=== PATIENT | male | born 1945 | race Two or more races ===

== ENCOUNTER 2018-03-13 16:12 | Inpatient (IN) | payer MEDICARE, OTHER ==
[~2018-03-13] VITALS: Ht 162.6 cm; Wt 68.9 kg
[2018-03-13] MEDS ORDERED: DIGOXIN250 MCG ORAL (23:33)
[2018-03-13] MEDS ORDERED: IPRATROPIU0.2 MG/1 M HHN (23:33)
[2018-03-13] MEDS ORDERED: HUMULIN R100 UNIT/1 SUBQ (23:33)
[2018-03-13] MEDS ORDERED: MULTIVITAMINS1 EAC8 ORAL (23:33)
[2018-03-13] MEDS ORDERED: ALBUTEROL2.5 MG/3 M INH (23:33)
[2018-03-13] MEDS ORDERED: CALCIUM CARBON500 M1 PO (23:33)
[2018-03-13] MEDS ORDERED: BETAXOLOL HCL20 MG PO (23:33)
[2018-03-13] MEDS ORDERED: ACETAMINOPHEN325 M1 ORAL (23:33)
[2018-03-13] MEDS ORDERED: FUROSEMIDE40 MG ORAL (23:33)
[2018-03-13] MEDS ORDERED: MAGNESIUM400 M1 PO (23:33)
[2018-03-13] MEDS ORDERED: ATORVASTATIN CA40 MG ORAL (23:33)
[2018-03-13] MEDS ORDERED: SENNA8.6 M2 PO (23:33)
[2018-03-13] MEDS ORDERED: ASPIR 8181 MG ORAL (23:33)
[2018-03-13] MEDS ORDERED: OMEPRAZOLE40 M1 ORAL (23:33)
[2018-03-13] MEDS ORDERED: XARELTO20 MG ORAL (23:33)
[2018-03-13] MEDS ORDERED: AMLODIPINE BESY10 MG ORAL (23:33)
[2018-03-14] VITALS: BP 154/62
[2018-03-14] MEDS ORDERED: Ipratropium 0.02% Inh Soln 2.5ml UD HHN PRN (02:45)
[2018-03-14] MEDS ORDERED: Albuterol ud Inhalation HHN PRN (02:45)
[2018-03-14 04:00] VITALS: BP 147/71
[2018-03-14] MEDS: NovoLOG Insulin Flexpen SUBQ SCH ×4 (07:05→20:39)
[2018-03-14 08:00] VITALS: BP 145/63
[2018-03-14 08:08] LABS: BASOPHILS % (AUTO) 0.9 % (0.0-2.0); EOSINOPHILS % (AUTO) 2.9 % (0.0-3.0); HEMATOCRIT 37.7 % (42.0-52.0); HEMOGLOBIN 13.2 G/DL (14.2-18.0); LYMPHOCYTES % (AUTO) 25.5 % (20.0-45.0); MEAN CORPUSCULAR VOLUME 92 FL (80-99); MONOCYTES % (AUTO) 7.4 % (1.0-10.0); NEUTROPHILS % (AUTO) 63.4 % (45.0-75.0); PLATELET COUNT 262 K/UL (150-450); RED CELL DISTRIBUTION WIDTH 12.7 % (11.6-14.8); WHITE BLOOD COUNT 11.3 K/UL (4.8-10.8)
[2018-03-14 08:54] LABS: ALANINE AMINOTRANSFERASE 16 U/L (12-78); ALBUMIN 2.8 G/DL (3.4-5.0); ALBUMIN/GLOBULIN RATIO 0.6 (1.0-2.7); ALKALINE PHOSPHATASE 125 U/L (46-116); ANION GAP 8 mmol/L (5-15); ASPARTATE AMINO TRANSFERASE 20 U/L (15-37); BILIRUBIN,TOTAL 0.5 MG/DL (0.2-1.0); BLOOD UREA NITROGEN 19 mg/dL (7-18); CALCIUM 8.5 MG/DL (8.5-10.1); CARBON DIOXIDE 27 MMOL/L (21-32); CHLORIDE 104 MMOL/L (98-107); CREATININE 0.9 MG/DL (0.55-1.30); POTASSIUM 3.1 MMOL/L (3.5-5.1); SODIUM 139 MMOL/L (136-145)
[2018-03-14] MEDS ORDERED: Sennosides 8.6mg ORAL SCH (09:00)
[2018-03-14] MEDS: Furosemide 40mg tab ORAL SCH ×2 (09:00→17:33)
[2018-03-14] MEDS: Tums 500mg ORAL SCH ×2 (09:29→17:33)
[2018-03-14] MEDS: Aspirin EC 81mg tab ORAL SCH (09:29)
[2018-03-14] MEDS: Sennosides 8.6mg ORAL SCH ×2 (09:30→17:33)
[2018-03-14] MEDS: Multivitamin w/Minerals tab ORAL SCH (10:48)
[2018-03-14 12:00] VITALS: BP 154/90
[2018-03-14 16:00] VITALS: BP 143/69
--- NOTE | 2018-03-14 19:00 | History and Physical Report ---
DATE OF ADMISSION: 03/13/2018 HISTORY OF PRESENT ILLNESS: The patient is a 73-year-old male who has past medical history of hypertension, diabetes, dementia, and degenerative arthritis, came to the emergency room and also feeling short of breath and cough with sputum production. The patient apparently also had wheezing for the last three days . He has no fever or chills. PAST MEDICAL HISTORY: Significant for diabetes, hypertension, COPD, depression, and dementia. ALLERGIES: NKA. MEDICATIONS: See the list. PHYSICAL EXAMINATION: GENERAL: This is an elderly male, sitting in the bed, complaining of mild short of breath and cough. VITAL SIGNS: Blood pressure is 130/70, pulse 60, and respirations 18. HEENT: NAD. CHEST: Bilateral scattered wheezing and crackles. CARDIOVASCULAR: Regular rhythm. No gallop. No murmur. ABDOMEN: Soft. EXTREMITIES: CCE. NEUROLOGICAL: Generalized weakness. GENITOURINARY: Deferred. LABORATORY AND DIAGNOSTIC DATA: Potassium was low 3.2. White count is normal. The patient's BUN and creatinine is also normal. He was found to have severe bradycardia. ASSESSMENT: 1. Acute chronic obstructive pulmonary disease exacerbation. 2. Severe bradycardia. 3. Atrial fibrillation. 4. Hypertension. 5. Diabetes. 6. Dementia. PLAN: The patient is admitted on telemetry bed. We are going to hold his digoxin. I am going to continue steroids, bronchodilator treatments, antibiotics. Consider cardiology consult. Potassium replacement and repeat the labs. Mayo Colunga M.D. DR: Jam JOB#: [id number] CC:
[2018-03-14 20:00] VITALS: BP 147/66
[2018-03-14] MEDS: Atorvastatin 20mg tab ORAL SCH (20:35)
[2018-03-15] VITALS: BP 156/87
[2018-03-15 04:00] VITALS: BP 112/55
[2018-03-15] MEDS: NovoLOG Insulin Flexpen SUBQ SCH ×4 (05:58→21:03)
[2018-03-15 08:00] VITALS: BP 162/80
[2018-03-15] MEDS: Aspirin EC 81mg tab ORAL SCH (09:04)
[2018-03-15] MEDS: Sennosides 8.6mg ORAL SCH ×2 (09:04→16:44)
[2018-03-15] MEDS: Furosemide 40mg tab ORAL SCH ×2 (09:05→16:43)
[2018-03-15] MEDS: Multivitamin w/Minerals tab ORAL SCH (09:05)
[2018-03-15] MEDS: Tums 500mg ORAL SCH ×2 (09:05→16:43)
[2018-03-15 12:00] VITALS: BP 146/74
[2018-03-15] MEDS ORDERED: 1/2 NS 1000ml IV ONE (13:39)
--- NOTE | 2018-03-15 13:48 | Infectious Diseases Prog Note ---
Assessment/Plan Problems: (1) COPD with acute exacerbation Assessment & Plan: will order CXR to rule out new pneumonia , and start levaquin empiric coverage (2) Uncontrolled diabetes mellitus Assessment & Plan: recommend tight glycemic control to keep blood glucose between 100-140 (3) SOB (shortness of breath) Assessment & Plan: due to the above, will order CXR, start antibiotics and bronchodilators Subjective Allergies: Coded Allergies: PENICILLINS (Verified Allergy, Unknown, 03/14/18) Objective Vital Signs Last 24 Hour Vital Signs Date Time Temp Pulse Resp B/P (MAP) Pulse Ox O2 Delivery O2 Flow Rate FiO2 03/15/18 09:05 48 162/80 03/15/18 08:37 71 18 Room Air 03/15/18 08:00 57 03/15/18 08:00 97.2 48 18 162/80 96 Room Air 97.2 03/15/18 04:00 56 03/15/18 04:00 97.2 52 20 112/55 100 Room Air 97.2 03/15/18 00:00 97.3 75 20 156/87 96 Room Air 97.3 03/15/18 00:00 46 03/14/18 20:24 63 18 Room Air 03/14/18 20:00 61 03/14/18 20:00 97.6 54 19 147/66 98 Room Air 97.6 03/14/18 16:04 56 03/14/18 16:00 97.9 66 18 143/69 99 Room Air 97.9 Height (Feet): 5 Height (Inches): 4.00 Weight (Pounds): 152 Current Medications Medications (Trade) Dose Ordered Sig/Sean Route PRN Reason Start Time Stop Time Status Last Admin Dose Admin Acetaminophen (Tylenol) 650 mg Q6H PRN ORAL Mild Pain/Temp > 100.5 03/14/18 02:45 04/13/18 02:44 Albuterol Sulfate (Proventil) 2.5 mg Q4H PRN HHN Shortness of Breath 03/14/18 02:45 03/19/18 02:44 Amlodipine Besylate (Norvasc) 10 mg DAILY ORAL 03/14/18 09:00 04/13/18 08:59 03/15/18 09:05 Aspirin (Ecotrin) 81 mg DAILY ORAL 03/14/18 09:00 04/13/18 08:59 03/15/18 09:04 Atorvastatin Calcium (Lipitor) 40 mg BEDTIME ORAL 03/14/18 21:00 04/13/18 20:59 03/14/18 20:35 Calcium Carbonate (Tums) 500 mg BID ORAL 03/14/18 09:00 04/13/18 08:59 03/15/18 09:05 Dextrose (Dextrose 50%) 25 ml STAT PRN IV Hypoglycemia 03/14/18 02:45 04/13/18 02:44 Dextrose (Dextrose 50%) 50 ml STAT PRN IV Hypoglycemia 03/14/18 02:45 04/13/18 02:44 Furosemide (Lasix) 40 mg TWICE A DAY ORAL 03/14/18 09:00 04/13/18 08:59 03/15/18 09:05 Insulin Aspart (NovoLOG) BEFORE MEALS AND HS SUBQ 03/14/18 06:30 04/13/18 06:29 03/15/18 12:19 Ipratropium [place] (Atrovent) 500 mcg Q6H PRN HHN Shortness of Breath 03/14/18 02:45 03/19/18 02:44 Multivitamins Therapeutic (Therapeutic Multivitamin) 1 ea DAILY ORAL 03/14/18 09:00 04/13/18 08:59 03/15/18 09:05 Potassium Chloride (K-Dur) 20 meq DAILY ORAL 03/15/18 09:00 04/14/18 08:59 03/15/18 09:05 Sennosides (Senokot) 1 tab BID ORAL 03/14/18 09:30 04/13/18 09:29 03/15/18 09:04 Sodium Chloride 1,000 ml @ 75 mls/hr [id number] IV 03/14/18 02:45 04/13/18 02:44 03/15/18 04:55 Sade Quintanilla M.D. Mar 15, 2018 13:48
[2018-03-15] MEDS ORDERED: Albuterol/Ipratropium 3ml neb HHN PRN (14:00)
[2018-03-15 16:00] VITALS: BP 127/86
--- NOTE | 2018-03-15 19:54 | Cardiology Progress Note ---
Subjective Subjective [id number] Objective Last 24 Hour Vital Signs Date Time Temp Pulse Resp B/P (MAP) Pulse Ox O2 Delivery O2 Flow Rate FiO2 03/15/18 16:00 97.5 54 18 127/86 96 Room Air 97.5 03/15/18 12:00 62 03/15/18 12:00 97.0 56 18 146/74 98 Room Air 97.0 03/15/18 09:05 48 162/80 03/15/18 08:37 71 18 Room Air 03/15/18 08:00 57 03/15/18 08:00 97.2 48 18 162/80 96 Room Air 97.2 03/15/18 04:00 56 03/15/18 04:00 97.2 52 20 112/55 100 Room Air 97.2 03/15/18 00:00 97.3 75 20 156/87 96 Room Air 97.3 03/15/18 00:00 46 03/14/18 20:24 63 18 Room Air 03/14/18 20:00 61 03/14/18 20:00 97.6 54 19 147/66 98 Room Air 97.6 Intake and Output 03/14/18 03/15/18 19:00 07:00 Intake Total 360 ml 450 ml Output Total 600 ml 3000 ml Balance -240 ml -2550 ml Intake Oral 360 ml IV Total 450 ml Output Urine Total 600 ml 3000 ml Aubrie Best MD Mar 15, 2018 19:54
[2018-03-15 20:00] VITALS: BP 142/81
[2018-03-15] MEDS: Atorvastatin 20mg tab ORAL SCH (21:03)
--- NOTE | 2018-03-15 21:30 | Consultation ---
DATE OF CONSULTATION: 03/15/2018 INFECTIOUS DISEASE CONSULTATION CONSULTING PHYSICIAN: Sade Quintanilla M.D. REFERRING PHYSICIAN: Mayo Colunga M.D. REASON FOR CONSULTATION: Chronic obstructive pulmonary disease with acute exacerbation. Recommendation for antibiotics treatment in a patient with penicillin allergy. HISTORY OF PRESENT ILLNESS: The patient is a 73-year-old male with past medical history of hypertension, diabetes, dementia, and degenerative joint disease, presented to the emergency room at [facility] with cough productive and shortness of breath with wheezing. The patient has had these symptoms for at least three days before presentation. No fever or chills. No recent travel or sick contact. The patient was admitted to the hospital for antibiotics treatment of his chronic obstructive pulmonary disease exacerbation and further management and Infectious Disease consultation was requested since the patient is allergic to penicillin. As of note, the patient is demented, poor historian, and could not provide good history. History was mainly obtained from the medical records. PAST MEDICAL HISTORY: Significant for diabetes, hypertension, chronic obstructive pulmonary disease, depression, and dementia. PAST SURGICAL HISTORY: Not on record. MEDICATIONS: No antibiotics has been started on this patient yet. For the rest of his medications, please refer to MAR. ALLERGIES: He is allergic to penicillin. FAMILY HISTORY: Unable to obtain. REVIEW OF SYSTEMS: Unable to obtain. The patient is a poor historian and could not provide good history. PHYSICAL EXAMINATION: VITAL SIGNS: Temperature of 97.2, pulse 48, respirations 18, blood pressure 162/80, and saturation 96% on room air. GENERAL: An elderly male, lying in bed, Niuean speaker, with dementia, comfortable, not in distress. HEENT: Normocephalic and atraumatic. Pupils are reactive to light. Moist oral mucosa. No exudate. NECK: Supple. No lymphadenopathy. CARDIOVASCULAR: Regular rate and rhythm. No murmur or gallop. LUNGS: He had wheezing and diminished breathing sounds at the bases. No wheezing or rhonchi. ABDOMEN: Soft, nontender, and nondistended. Normal bowel sounds. No hepatosplenomegaly or ascites. EXTREMITIES: No edema or cyanosis. SKIN: No rash. No hives. LABORATORY DATA: Labs showed white count of 11.3, hemoglobin of 13.2, and platelet count of 262,000. BUN of 19 and creatinine of 0.9. AST of 20, ALT of 16,and alk phosphatase of 125. ASSESSMENT AND RECOMMENDATION: 1. Chronic obstructive pulmonary disease with acute exacerbation. We will order chest x-ray to rule out any pneumonia. We will start the patient on Levaquin empiric coverage and bronchodilator as needed. Continue oxygen. 2. Poorly controlled diabetes. Recommend tight glycemic control to keep blood glucose between 100 to 140. 3. Shortness of breath due to the above. We will order chest x-ray. Start antibiotics and bronchodilator. Thank you for the consult. ID will continue to follow. Sade Quintanilla M.D. DR: ALEXANDRIA JOB#: [id number] CC:
[2018-03-16] VITALS: BP 140/83
--- NOTE | 2018-03-16 01:15 | Consultation ---
DATE OF CONSULTATION: 03/15/2018 CARDIOLOGY CONSULTATION This consultation is done as a coverage for Dr. Ga Mejia. REASON FOR EVALUATION: Slow heart rate. HISTORY OF PRESENT ILLNESS: The patient presented with shortness of breath, cough, and wheezing. He did not have orthopnea and he denied any chest pain. No fever. The patient was bradycardiac. He is in atrial fibrillation and heart rate was low, but he also was on digoxin. PAST MEDICAL HISTORY: Significant for stroke with left-sided hemiplegia. He also has hypertension, diabetes, and vascular dementia. MEDICATIONS: Prior to admission included Tylenol, albuterol, amlodipine, atorvastatin, , digoxin, furosemide, insulin, magnesium, multivitamins, rivaroxaban, and senna. HABITS: He quit smoking 20 years ago. No alcohol or drug abuse that is according to the patient. REVIEW OF SYSTEMS: He has left-sided hemiplegia and he is bedridden. He also has poor memory. He has cough and wheezing and the rest of the review of system was done and it was negative. PHYSICAL EXAMINATION: GENERAL: Revealed elderly man, resting in bed. VITAL SIGNS: His blood pressure was 160/80 and 140/70. His temperature was normal. Oxygen saturation on 2 liters of oxygen is 98%. HEENT: He has a right facial droop. NECK: Supple. Jugular venous pressure is not elevated. He has carotid upstroke bilaterally, palpable. LUNGS: He has scattered wheezing bilaterally. HEART: Irregular with slightly accentuated A2. ABDOMEN: Distended. Positive bowel sounds. EXTREMITIES: His left arm is contracted. His left leg is weak and both legs are weak. NEUROLOGICAL: Left-sided hemiplegia. LABORATORY DATA: His potassium is 3.1. His albumin is 2.8. His white count is 11.3, his hemoglobin 13.2, and his platelets are 262,000. His digoxin level was 1.8. His EKG shows atrial fibrillation with left ventricular hypertrophy. Chest x-ray is pending. IMPRESSION AND RECOMMENDATION: Atrial fibrillation, permanent. Digoxin cause bradycardia, digoxin was appropriately discontinued. The patient previously was on anticoagulation with Xarelto., I am going to resume that plus aspirin. The patient also was getting intravenous fluids and Lasix, not clear why. I am going to order echocardiogram. The chest x-ray is pending, but it was not done yet and also I am going to order laboratories to see what is his potassium level today and he needs to be monitored with daily electrolytes and CBC considering that he is anticoagulated. Thank you very much for your consultation. I will follow this patient with you. Aubrie Best M.D. DR: YOLIS JOB#: [id number] CC:
--- NOTE | 2018-03-16 03:30 | Progress Note ---
DATE: 03/15/2018 SUBJECTIVE: This is an elderly male, currently sitting in the chair, slightly confused, and generalized weakness. OBJECTIVE: VITAL SIGNS: Blood pressure is 113/70, pulse 60, and respirations 18. No fever. HEENT: NAD. CHEST: Few crackles. CARDIOVASCULAR: Regular rhythm. No murmur. ABDOMEN: Soft. Positive bowel sounds. EXTREMITIES: CCE. NEUROLOGICAL: Generalized weakness. ASSESSMENT: 1. Acute chronic obstructive pulmonary disease. 2. Congestive heart failure. 3. Hypertension. 4. Dementia. PLAN: We will currently continue IV antibiotics, bronchodilator treatments, and PT and OT. Check labs. diabetic teaching. The patient also has bradycardia. Cardiology was consulted. Mayo Colunga M.D. DR: Marlene JOB#: [id number] CC:
[2018-03-16 04:00] VITALS: BP 135/75
[2018-03-16] MEDS: NovoLOG Insulin Flexpen SUBQ SCH ×3 (06:19→17:09)
[2018-03-16 08:00] VITALS: BP 140/81
[2018-03-16] MEDS: Aspirin EC 81mg tab ORAL SCH (09:24)
[2018-03-16] MEDS: Sennosides 8.6mg ORAL SCH ×2 (09:24→17:12)
[2018-03-16] MEDS: Furosemide 40mg tab ORAL SCH ×2 (09:27→17:12)
[2018-03-16] MEDS: Multivitamin w/Minerals tab ORAL SCH (09:27)
[2018-03-16] MEDS: Tums 500mg ORAL SCH ×2 (09:28→17:12)
[2018-03-16 09:46] LABS: BASOPHILS % (AUTO) 0.9 % (0.0-2.0); EOSINOPHILS % (AUTO) 2.2 % (0.0-3.0); HEMATOCRIT 41.9 % (42.0-52.0); HEMOGLOBIN 14.3 G/DL (14.2-18.0); LYMPHOCYTES % (AUTO) 19.3 % (20.0-45.0); MEAN CORPUSCULAR VOLUME 92 FL (80-99); MONOCYTES % (AUTO) 6.1 % (1.0-10.0); NEUTROPHILS % (AUTO) 71.5 % (45.0-75.0); PLATELET COUNT 291 K/UL (150-450); RED BLOOD COUNT 4.58 M/UL (4.70-6.10); RED CELL DISTRIBUTION WIDTH 12.4 % (11.6-14.8)
[2018-03-16 09:59] LABS: ALANINE AMINOTRANSFERASE 20 U/L (12-78); ALBUMIN/GLOBULIN RATIO 0.6 (1.0-2.7); ALKALINE PHOSPHATASE 142 U/L (46-116); ANION GAP 8 mmol/L (5-15); ASPARTATE AMINO TRANSFERASE 16 U/L (15-37); BILIRUBIN,TOTAL 0.5 MG/DL (0.2-1.0); BLOOD UREA NITROGEN 13 mg/dL (7-18); CALCIUM 9.1 MG/DL (8.5-10.1); CARBON DIOXIDE 28 MMOL/L (21-32); CHLORIDE 102 MMOL/L (98-107); CREATININE 0.9 MG/DL (0.55-1.30); POTASSIUM 3.2 MMOL/L (3.5-5.1); SODIUM 138 MMOL/L (136-145)
--- NOTE | 2018-03-16 11:16 | Physician Query ---
--------- THIS DOCUMENT IS A PERMANENT PART OF THE MEDICAL RECORD --------- PLEASE COMPLETE DOCUMENT BEFORE SIGNING Dear Dr. Colunga Date: 03/16/18 Communications Department Chairperson/CDS Name: Holly Chilel [employer] Department Chairperson/CDS Phone No.: [phone] Exercise your independent professional judgment when responding to the query. Questions asked do not imply a particular answer is desired or expected. We greatly appreciate your clarification on this issue. CLINICAL DOCUMENTATION STATES: Patient with dementia admitted with COPD. CLINICAL FINDINGS SHOW: Albumin: 2.8, 3.0 Please select the most appropriate option: [] Mild [] Moderate [] Protein/Calorie Malnutrition [] Protein Malnutrition >Serum albumin 2.8 to 3.4 g/dL or Pre-albumin 5 to 7 mg/dl (3) >Inadequate nutritional intake (1, 2, 3, 4) >NPO > 5 days >Weight loss: 5% in 1 month or 7.5% in 3 months or 10% in 6 months (1,3,4) >BMI 16 to 18.4 or Weight <90 of ideal body weight (1,2,3,4) [] Severe Malnutrition (Protein/Calorie) [] Severe Protein Malnutrition >Serum Albumin < 2.8 g/dL (1,2) >Lymphocytes < 1500/uL (2) >Inadequate nutritional intake3 , high stress e.g. major trauma, sepsis, pancreatitis, massey etc. >Decubitus ulcers (1,2) , skin breakdown(2), easy hair pluckability >Weight <80% standard for height (2) >Triceps skin fold <3 mm2 >Mid-arm muscle circumference <25 cm2 >Creatinine-height index <60% standard (2) _ [] Hypoalbuminemia [] Emancipated w/ Malnutrition [] Kwashi[place]or (rare in [place]) [] Marasmus [] Other [] Unable to determine [] Not Applicable Condition Present on Admission: [] Yes [] No [ ] Unable to determine Please also document in your Progress Notes and/or Discharge Summary and indicate if the condition was present on admission. M.D. References: 1 [facility] Board. (2007). Nutritional support strategy for protein -energy malnutrition in the elderly. Clinical Practice Guidelines. 2 Benedicto Self (2011). Malnutrition and nutritional assessment. In Luis Alfredo Estes (18th Ed.) Vlad's Principle of Internal Medicine ([phone]) [place], [place]: [facility], [place], operated by [facility] 3 Fernanda Noel. (2001). Clinical Nutrition: Protein-energy malnutrition in the inpatient. [place] [employer] Journal, vol. 165 no. 10 (pp. 6868- 6149 ). 4 Sonam Lopez (2012). Geriactric Nutrition: Nutritional Issues in Older Adults. [email or web address]
[2018-03-16 12:00] VITALS: BP 136/69
--- NOTE | 2018-03-16 12:53 | Diagnostic Imaging Report ---
Indication: Cough Comparison: None A single view chest radiograph was obtained. Findings: The lung volumes are low. Bronchovascular markings are prominent which is a nonspecific finding. Heart is borderline enlarged. Cholecystectomy clips noted. IMPRESSION: Prominent interstitium nonspecific.
--- NOTE | 2018-03-16 14:10 | Infectious Diseases Prog Note ---
Assessment/Plan Problems: (1) COPD with acute exacerbation Assessment & Plan: continue levaquin empiric coverage for bronchitis and nebulizers as needed . (2) Uncontrolled diabetes mellitus Assessment & Plan: recommend tight glycemic control to keep blood glucose between 100-140 (3) SOB (shortness of breath) Assessment & Plan: due to the above, continue antibiotics and bronchodilators, monitor CXR Subjective Constitutional: Reports: no symptoms HEENT: Reports: no symptoms Respiratory: Reports: dry cough Breasts: Reports: no symptoms Cardiovascular: Reports: no symptoms Gastrointestinal/Abdominal: Reports: no symptoms Genitourinary: Reports: no symptoms Neurologic: Reports: no symptoms Psychiatric: Reports: no symptoms Skin: Reports: no symptoms Endocrine: Reports: no symptoms Hematologic: Reports: no symptoms Musculoskeletal: Reports: no symptoms Allergies: Coded Allergies: PENICILLINS (Verified Allergy, Unknown, 03/14/18) Objective Vital Signs Last 24 Hour Vital Signs Date Time Temp Pulse Resp B/P (MAP) Pulse Ox O2 Delivery O2 Flow Rate FiO2 03/16/18 09:27 73 140/81 03/16/18 08:25 60 18 Room Air 03/16/18 08:00 97.4 73 22 140/81 97 Room Air 97.4 03/16/18 08:00 74 03/16/18 04:00 97.0 65 21 135/75 98 Room Air 97.0 03/16/18 04:00 58 03/16/18 00:00 97.4 74 20 140/83 97 Room Air 97.4 03/16/18 00:00 59 03/15/18 20:00 98.2 76 22 142/81 97 Room Air 98.2 03/15/18 20:00 62 03/15/18 19:43 61 18 Room Air 03/15/18 16:00 68 03/15/18 16:00 97.5 54 18 127/86 96 Room Air 97.5 Height (Feet): 5 Height (Inches): 4.00 Weight (Pounds): 152 General Appearance: WD/WN, no acute distress HEENT: normocephalic, atraumatic, anicteric, mucous membranes moist Respiratory/Chest: chest wall non-tender, normal breath sounds, no respiratory distress, no accessory muscle use, decreased breath sounds, expiratory wheezing Cardiovascular: normal peripheral pulses, normal rate, regular rhythm, no gallop/murmur, no JVD Abdomen: normal bowel sounds, soft, non tender, no organomegaly, non distended , no mass, no scars Genitourinary: normal external genitalia Extremities: no cyanosis, no clubbing Skin: no rash, no lesions, no ulcers Neurologic/Psychiatric: alert, responsive Laboratory Tests Test 03/16/18 09:27 White Blood Count 11.0 K/UL (4.8-10.8) H Red Blood Count 4.58 M/UL (4.70-6.10) L Hemoglobin 14.3 G/DL (14.2-18.0) Hematocrit 41.9 % (42.0-52.0) L Mean Corpuscular Volume 92 FL (80-99) Mean Corpuscular Hemoglobin 31.3 PG (27.0-31.0) H Mean Corpuscular Hemoglobin Concent 34.2 G/DL (32.0-36.0) Red Cell Distribution Width 12.4 % (11.6-14.8) Platelet Count 291 K/UL (150-450) Mean Platelet Volume 7.4 FL (6.5-10.1) Neutrophils (%) (Auto) 71.5 % (45.0-75.0) Lymphocytes (%) (Auto) 19.3 % (20.0-45.0) L Monocytes (%) (Auto) 6.1 % (1.0-10.0) Eosinophils (%) (Auto) 2.2 % (0.0-3.0) Basophils (%) (Auto) 0.9 % (0.0-2.0) Sodium Level 138 MMOL/L (136-145) Potassium Level 3.2 MMOL/L (3.5-5.1) L Chloride Level 102 MMOL/L (98-107) Carbon Dioxide Level 28 MMOL/L (21-32) Anion Gap 8 mmol/L (5-15) Blood Urea Nitrogen 13 mg/dL (7-18) Creatinine 0.9 MG/DL (0.55-1.30) Estimat Glomerular Filtration Rate mL/min (>60) Glucose Level 229 MG/DL (74-106) H Calcium Level 9.1 MG/DL (8.5-10.1) Total Bilirubin 0.5 MG/DL (0.2-1.0) Aspartate Amino Transf (AST/SGOT) 16 U/L (15-37) Alanine Aminotransferase (ALT/SGPT) 20 U/L (12-78) Alkaline Phosphatase 142 U/L (46-116) H Total Protein 7.8 G/DL (6.4-8.2) Albumin 3.0 G/DL (3.4-5.0) L Globulin 4.8 g/dL Albumin/Globulin Ratio 0.6 (1.0-2.7) L Current Medications Medications (Trade) Dose Ordered Sig/Sean Route PRN Reason Start Time Stop Time Status Last Admin Dose Admin Acetaminophen (Tylenol) 650 mg Q6H PRN ORAL Mild Pain/Temp > 100.5 03/14/18 02:45 04/13/18 02:44 Albuterol Sulfate (Proventil) 2.5 mg Q4H PRN HHN Shortness of Breath 03/14/18 02:45 03/19/18 02:44 Albuterol/ Ipratropium (Albuterol/ Ipratropium) 3 ml Q6H PRN HHN Shortness of Breath 03/15/18 14:00 03/20/18 13:59 Amlodipine Besylate (Norvasc) 10 mg DAILY ORAL 03/14/18 09:00 04/13/18 08:59 03/16/18 09:27 Aspirin (Ecotrin) 81 mg DAILY ORAL 03/14/18 09:00 04/13/18 08:59 03/16/18 09:24 Atorvastatin Calcium (Lipitor) 40 mg BEDTIME ORAL 03/14/18 21:00 04/13/18 20:59 03/15/18 21:03 Calcium Carbonate (Tums) 500 mg BID ORAL 03/14/18 09:00 04/13/18 08:59 03/16/18 09:28 Dextrose (Dextrose 50%) 25 ml STAT PRN IV Hypoglycemia 03/14/18 02:45 04/13/18 02:44 Dextrose (Dextrose 50%) 50 ml STAT PRN IV Hypoglycemia 03/14/18 02:45 04/13/18 02:44 Furosemide (Lasix) 40 mg TWICE A DAY ORAL 03/14/18 09:00 04/13/18 08:59 03/16/18 09:27 Insulin Aspart (NovoLOG) BEFORE MEALS AND HS SUBQ 03/14/18 06:30 04/13/18 06:29 03/16/18 11:38 Ipratropium [place] (Atrovent) 500 mcg Q6H PRN HHN Shortness of Breath 03/14/18 02:45 03/19/18 02:44 Levofloxacin 100 ml @ 100 mls/hr Q24H IVPB 03/15/18 15:00 03/22/18 14:59 03/15/18 15:12 Multivitamins Therapeutic (Therapeutic Multivitamin) 1 ea DAILY ORAL 03/14/18 09:00 04/13/18 08:59 03/16/18 09:27 Potassium Chloride (K-Dur) 20 meq DAILY ORAL 03/15/18 09:00 04/14/18 08:59 03/16/18 09:23 Sennosides (Senokot) 1 tab BID ORAL 03/14/18 09:30 04/13/18 09:29 03/16/18 09:24 Sodium Chloride 1,000 ml @ 75 mls/hr [id number] IV 03/14/18 02:45 04/13/18 02:44 03/16/18 09:58 Sade Quintanilla M.D. Mar 16, 2018 14:10
[2018-03-16 16:00] VITALS: BP 130/71
--- NOTE | 2018-03-16 22:30 | Progress Note ---
DATE: 03/16/2018 SUBJECTIVE: The patient is a 73-year-old male, came to the hospital for heart failure, short of breath and CHF. The patient currently doing better. Short of breath . OBJECTIVE: VITAL SIGNS: Stable. CHEST: Bilaterally clear. CARDIOVASCULAR: Regular rhythm. No gallop. No murmur. ABDOMEN: Soft. EXTREMITIES: CCE. ASSESSMENT: 1. Congestive heart failure. 2. Shortness of breath. 3. Hypertension. 4. End-stage renal disease. PLAN: We will currently continue Lasix, bronchodilator treatments. Continue HD. Continue supportive treatment. Continue rest of the treatment. DIET: A 2-g sodium diet. ACTIVITY: The patient probably bed to chair. Need more exercise and continue home medications. Mayo Colunga M.D. DR: SOWMYA JOB#: [id number] CC:
--- NOTE | 2018-03-16 22:32 | Cardiology Progress Note ---
Assessment/Plan Assessment/Plan atrial fibrillation, bardyccardia on digoxin digoxin was discontinued the patient to resume xarelto Subjective Subjective The patient is resting in bed he is complaining on cough Objective Last 24 Hour Vital Signs Date Time Temp Pulse Resp B/P (MAP) Pulse Ox O2 Delivery O2 Flow Rate FiO2 03/16/18 20:20 87 18 Room Air 03/16/18 16:00 73 03/16/18 16:00 97.9 66 18 130/71 98 Room Air 97.9 03/16/18 12:00 57 03/16/18 12:00 98.0 63 18 136/69 97 Room Air 98.0 03/16/18 09:27 73 140/81 03/16/18 08:25 60 18 Room Air 03/16/18 08:00 97.4 73 22 140/81 97 Room Air 97.4 03/16/18 08:00 74 03/16/18 04:00 97.0 65 21 135/75 98 Room Air 97.0 03/16/18 04:00 58 03/16/18 00:00 97.4 74 20 140/83 97 Room Air 97.4 03/16/18 00:00 59 General Appearance: mild distress EENT: other - facial droop Neck: no JVD Rhythm: Afib Cardiovascular: bradycardia Respiratory/Chest: decreased breath sounds, crackles/rales Extremities: other - musle atrophy Neurologic: other - left hemiplegia Intake and Output 03/15/18 03/16/18 19:00 07:00 Intake Total 240 ml Output Total 600 ml 2200 ml Balance -360 ml -2200 ml Intake Oral 240 ml Output Urine Total 600 ml 2200 ml # Voids 2 Laboratory Tests Test 03/16/18 09:27 White Blood Count 11.0 K/UL (4.8-10.8) H Red Blood Count 4.58 M/UL (4.70-6.10) L Hemoglobin 14.3 G/DL (14.2-18.0) Hematocrit 41.9 % (42.0-52.0) L Mean Corpuscular Volume 92 FL (80-99) Mean Corpuscular Hemoglobin 31.3 PG (27.0-31.0) H Mean Corpuscular Hemoglobin Concent 34.2 G/DL (32.0-36.0) Red Cell Distribution Width 12.4 % (11.6-14.8) Platelet Count 291 K/UL (150-450) Mean Platelet Volume 7.4 FL (6.5-10.1) Neutrophils (%) (Auto) 71.5 % (45.0-75.0) Lymphocytes (%) (Auto) 19.3 % (20.0-45.0) L Monocytes (%) (Auto) 6.1 % (1.0-10.0) Eosinophils (%) (Auto) 2.2 % (0.0-3.0) Basophils (%) (Auto) 0.9 % (0.0-2.0) Sodium Level 138 MMOL/L (136-145) Potassium Level 3.2 MMOL/L (3.5-5.1) L Chloride Level 102 MMOL/L (98-107) Carbon Dioxide Level 28 MMOL/L (21-32) Anion Gap 8 mmol/L (5-15) Blood Urea Nitrogen 13 mg/dL (7-18) Creatinine 0.9 MG/DL (0.55-1.30) Estimat Glomerular Filtration Rate mL/min (>60) Glucose Level 229 MG/DL (74-106) H Calcium Level 9.1 MG/DL (8.5-10.1) Total Bilirubin 0.5 MG/DL (0.2-1.0) Aspartate Amino Transf (AST/SGOT) 16 U/L (15-37) Alanine Aminotransferase (ALT/SGPT) 20 U/L (12-78) Alkaline Phosphatase 142 U/L (46-116) H Total Protein 7.8 G/DL (6.4-8.2) Albumin 3.0 G/DL (3.4-5.0) L Globulin 4.8 g/dL Albumin/Globulin Ratio 0.6 (1.0-2.7) L Aubrie Best MD Mar 16, 2018 22:32
--- NOTE | 2018-03-19 08:28 | Discharge Summary ---
Discharge Summary Discharge Summary _ DATE OF ADMISSION: 03/13/2018 DATE OF DISCHARGE: 03/16/2018 REASON FOR ADMISSION: 73 years old male with past medical history significant for hypertension, diabetes mellitus, CVA with left hemiplegia, vascular dementia, depression, degenerative arthritis, resident of the residential facility, presented to the hospital due to shortness of breath, cough and wheezing. He was diagnosed with acute COPD exacerbation and was admitted to telemetry floor for further management. CONSULTANTS: chemical equipment repairer Dr. Best ID specialist Dr. Quintanilla [facility] COURSE: Patient admitted to telemetry floor. Supplemental oxygen titrated as needed to keep pulse oximetry above 92%. Pulmonary toilet and bronchodilator treatment provided. Offline Editor and ID specialist closely followed. Per chemical equipment repairer , patient had no chest pain , no orthopnea,no fever, no evidence of congestive heart failure. Atrial fibrillation appeared to be permanent. Initial bradycardia noted on telemetry, was likely secondary to digoxin. Digoxin was stopped. Rate was controlled Bradycardia resolved. Offline Editor recommended to start patient on Xarelto and continue aspirin. Blood pressure was managed with calcium channel cecille and remained stable Home medications were resumed. Blood sugar was managed with a sliding scale insulin. Hemoglobin A1c 7.2 near the goal. Continue close monitoring of blood pressure and blood sugar at the facility. Renal parameters and electrolytes were closely monitored. Electrolytes were corrected as needed. Potassium was replaced Patient clinically improved and was stable for discharge back to residential facility FINAL DIAGNOSES: Acute COPD exacerbation Permanent atrial fibrillation Hypertension Diabetes mellitus Dementia DISCHARGE MEDICATIONS: List of medication was sent accepting facility. DISCHARGE INSTRUCTIONS: Patient was discharged to residential facility. Follow up with medical doctor at the facility I have been assigned to dictate discharge summary for this account. I was not involved in the patient's management. Salena Brown NP Mar 19, 2018 08:28
== END 2018-03-16 20:20 | DRG 190 ==
LOC: 2E 22:05
DX: J44.1 Chronic obstructive pulmonary disease with (acute) exacerbation (principal); N18.6 End stage renal disease; E44.0 Moderate protein-calorie malnutrition; I69.354 Hemiplegia and hemiparesis following cerebral infarction affecting left non-dominant side; I13.2 Hypertensive heart and chronic kidney disease with heart failure and with stage 5 chronic kidney disease, or end stage renal disease; R00.1 Bradycardia, unspecified; T46.0X5A Adverse effect of cardiac-stimulant glycosides and drugs of similar action, initial encounter; F32.9 Major depressive disorder, single episode, unspecified; F03.90 Unspecified dementia, unspecified severity, without behavioral disturbance, psychotic disturbance, mood disturbance, and anxiety; M19.90 Unspecified osteoarthritis, unspecified site; Z88.0 Allergy status to penicillin; E11.65 Type 2 diabetes mellitus with hyperglycemia; E11.22 Type 2 diabetes mellitus with diabetic chronic kidney disease; N18.9 Chronic kidney disease, unspecified; I48.2 Chronic atrial fibrillation
CPT/HCPCS: 36415; 71045; 80053; 80162; 82962; 83036; 85025; 87081; 93005; 93306; 94664; J1815; J8499